=== PATIENT | female | born 1960 | race Caucasian/White ===

== ENCOUNTER 2019-06-03 00:54 | Emergency (ER) | payer OTHER ==
[~2019-06-03] VITALS: Ht 157.5 cm; Wt 64.9 kg
[2019-06-03 01:18] VITALS: Ht 157.5 cm; Wt 64.9 kg
[2019-06-03 02:08] LABS: BASOPHIL % 0.7 % (0-2); PLATELET COUNT 195 x10^3mcL (130-400)
[2019-06-03 02:17] LABS: CARBON DIOXIDE 26.9 mmol/L (21-32); CHLORIDE SERUM 97 mmol/L (98-107); CREATININE SERUM 0.9 mg/dL (0.6-1.0); GFR1 > 60 mL/min; GLUCOSE SERUM 422 mg/dL (74-106); POTASSIUM SERUM 3.8 mmol/L (3.5-5.1); SODIUM SERUM 135 mmol/L (136-145)
[2019-06-03 02:22] LABS: ALBUMIN 4.1 g/dL (3.4-5.0); ALKALINE PHOSPHATASE 180 U/L (46-116); ALT/SGPT 39 U/L (14-59); AST/SGOT 21 U/L (15-37); BILIRUBIN TOTAL 0.37 mg/dL (0.20-1.00); LIPASE 94 IU/L (73-393); TOTAL PROTEIN, SERUM 8.4 g/dL (6.4-8.2)
[2019-06-03 05:31] VITALS: BP 148/79
== END 2019-06-03 05:31 | disposition home or self-care (01) ==
LOC: ED 00:54
PROVIDERS: Emergency Medicine
DX: E11.65 Type 2 diabetes mellitus with hyperglycemia (principal); R10.11 Right upper quadrant pain; I10 Essential (primary) hypertension
CPT/HCPCS: 82962; J1885; J2405; Q0092